=== PATIENT | male | born 1990 | race Hispanic/Latino ===

== ENCOUNTER 2021-08-27 14:24 | Emergency (ER) | payer OTHER ==
[~2021-08-27] VITALS: Ht 177.8 cm; Wt 100.0 kg
[2021-08-27 16:55] LABS: URINE BILIRUBIN - DIPSTICK NEGATIVE (NEGATIVE); URINE BLOOD DIPSTICK NEGATIVE (NEGATIVE); URINE COLOR YELLOW; URINE GLUCOSE - DIPSTICK NEGATIVE (NEGATIVE); URINE KETONE NEGATIVE (NEGATIVE); URINE LEUK ESTERASE NEGATIVE (NEGATIVE); URINE PROTEIN - DIPSTICK NEGATIVE (NEG-TRACE); URINE SPECIFIC GRAVITY 1.025; URINE UROBILINOGEN - DIPSTICK 0.2 E.U./dL (0.2)
[2021-08-27 16:56] LABS: URINE NITRITE - DIPSTICK NEGATIVE (Negative)
[2021-08-27] MEDS ORDERED: NAPROXEN500 MG PO ×2 (17:14→17:22)
[2021-08-27] MEDS ORDERED: CYCLOBENZAPRINE10 MG PO ×2 (17:14→17:22)
[2021-08-27 17:57] VITALS: BP 106/66
== END 2021-08-27 17:50 | disposition home or self-care (01) | DRG 552 ==
LOC: ED 14:24
PROVIDERS: Emergency Medicine
DX: M51.9 Unspecified thoracic, thoracolumbar and lumbosacral intervertebral disc disorder (principal)